=== PATIENT | female | born 1970 | race African-American/Black ===

== ENCOUNTER 2019-11-25 08:07 | Emergency (ER) | payer MEDICARE, MEDICAID ==
[~2019-11-25] VITALS: Ht 157.5 cm; Wt 79.4 kg
[~2019-11-25 08:07] MED LIST: ALLEGRA ALLERG180 MG PO; CEFDINIR300 MG PO; COD LIVER OIL1 EAC3; COUMADIN 4 MG TA4 M1; FOLIC ACID1 MG; UNICOMPLEX M TA1 TA1; VITAMIN B122500 MCG; VITAMIN C500 M1; VITAMIN D3400 UNIT; VITAMIN E100 UNI2; XANAX 0.5 MG0.5 MG
[2019-11-25] MEDS ORDERED: PREDNISONE 20 M20 M1 PO (09:10)
[2019-11-25 09:15] VITALS: BP 150/84
[2019-11-25] MEDS ORDERED: DICLOFENAC SOD50 M1 PO (09:31)
== END 2019-11-25 09:16 | disposition home or self-care (01) ==
LOC: M.ERS 08:07
DX: M25.531 Pain in right wrist (principal); Z88.6 Allergy status to analgesic agent; Z88.1 Allergy status to other antibiotic agents; Z88.2 Allergy status to sulfonamides; Z88.8 Allergy status to other drugs, medicaments and biological substances; Z91.041 Radiographic dye allergy status; Z88.5 Allergy status to narcotic agent; Z91.018 Allergy to other foods; Z90.49 Acquired absence of other specified parts of digestive tract; Z98.51 Tubal ligation status